=== PATIENT | male | born 1970 | race Two or more races ===

== ENCOUNTER 2020-01-27 21:50 | Inpatient (IN) | payer MEDICAID ==
[~2020-01-27] VITALS: Ht 185.4 cm; Wt 112.9 kg
[2020-01-27] MEDS ORDERED: HYDROmorphone HCL 2 MG/ML VL IV ONE (22:00)
[2020-01-27] MEDS ORDERED: ONDANSETRON HCL 4 MG/2 ML VIAL IV ONE (22:00)
[2020-01-27] MEDS ORDERED: SODIUM CHLORIDE 0.9% 500 ML IVB ONE (22:00)
[2020-01-27 22:34] LABS: Basophils # (auto) 0.1 10 ^3/uL (0-0.2); Basophils % (auto) 0.8 % (0.0-2.0); Eosinophils # (auto) 0.3 10 ^3/uL (0-0.8); Eosinophils % (auto) 1.7 % (0.0-7.0); Hemoglobin 18.3 g/dL (13.5-17.5); Lymphocytes # (auto) 1.3 10 ^3/uL (0.4-5.4); Lymphocytes % (auto) 8.9 % (10.0-50.0); Mean Corpuscular Hemoglobin 30.5 pg (28.0-32.0); Mean Corpuscular Hgb Conc. 33.8 g/dL (32.0-36.0); Mean Corpuscular Volume 90.3 fL (80.0-100.0); Monocytes # (auto) 0.7 10 ^3/uL (0-1.3); Monocytes % (auto) 4.5 % (0.0-12.0); Neutrophils # (auto) 12.1 10 ^3/uL (1.6-8.6); Neutrophils % (auto) 84.1 % (37.0-80.0); Nucleated Red Blood Cells % 0.1 %; Platelet Count (auto) 317 10^3/uL (140-450); Red Blood Cells 5.98 10^6/uL (4.5-5.90); Red Cell Distribution Width 13.6 % (11.8-14.3); White Blood Cell 14.4 10^3/uL (4.4-10.8)
[2020-01-27 22:53] LABS: Albumin 4.6 g/dL (3.4-5.0); BUN/Creatinine Ratio 7.6; Magnesium 2.2 mg/dL (1.6-2.6); Potassium 4.2 mmol/L (3.5-5.1)
[2020-01-27 22:56] LABS: Bilirubin, Total 1.5 mg/dL (0.2-1.0); Total Protein 9.1 g/dL (6.4-8.2)
[2020-01-28] MEDS ORDERED: SODIUM CHLORIDE 0.9% 1,000 ML IV SCH (02:45)
[2020-01-28] MEDS: MORPHINE SULFATE 4 MG/ML SYR/VIAL IV PRN ×4 (03:30→21:00)
[2020-01-28] MEDS: ONDANSETRON HCL 4 MG/2 ML VIAL IV PRN ×2 (03:31→10:01)
[2020-01-28 03:47] LABS: Lactic Acid w/Reflex 2.8 mmol/L (0.4-2.0)
[2020-01-28] MEDS ORDERED: cefTRIAXone 1GM/50ML D5W 50 ML IV SCH (09:00)
[2020-01-28] MEDS: PANTOPRAZOLE 40 MG/10 ML VIAL INJ IV SCH (10:00)
[2020-01-28] MEDS ORDERED: FAMOTIDINE (10MG/ML) 2ML VL IV ONE (12:07)
[2020-01-28] MEDS ORDERED: SUCCINYLCHOLINE CHLORIDE 20 MG/ML 10ML VIAL IV ONE (12:11)
[2020-01-28] MEDS ORDERED: HYDROmorphone HCL 2 MG/ML VL ONE (12:13)
[2020-01-28] MEDS ORDERED: fentaNYL CITRATE 100 MCG/2 ML VL ONE (12:13)
[2020-01-28] MEDS ORDERED: ROCURONIUM 10MG/ML 10ML VIAL IV ONE (12:13)
[2020-01-28] MEDS ORDERED: ONDANSETRON HCL 4 MG/2 ML VIAL ONE (12:13)
[2020-01-28] MEDS ORDERED: PROPOFOL 10 MG/ML 20 ML IV ONE (12:13)
[2020-01-28] MEDS ORDERED: KETOROLAC TROMETH 30 MG/ML 1ML VIAL ONE (12:13)
[2020-01-28] MEDS ORDERED: MIDAZOLAM HCL 1MG/1ML-2 ML VIAL ONE (12:13)
[2020-01-28] MEDS ORDERED: DexAMETHasone SOD PHOS 10MG/1ML VIAL INJ ONE (12:13)
[2020-01-28] MEDS ORDERED: GLYCOPYRROLATE 0.2 MG/ML 1ML VIAL ONE ×2 (12:13→12:45)
[2020-01-28] MEDS ORDERED: LIDOCAINE 2% (LOCAL ANESTH.) PF 5ml SDV ONE (12:13)
[2020-01-28] MEDS ORDERED: ceFAZolin 1GM/50ML 50 ML IV ONE (12:19)
[2020-01-28] MEDS ORDERED: NEOSTIGMINE 1 MG/ML INJ (10mg/10ML VIAL) ONE (12:45)
[2020-01-28] MEDS ORDERED: ePHEDrine SULFATE 50 MG/ML AMP ONE (12:57)
[2020-01-28] MEDS ORDERED: ACCU-CHEK COMFORT CURVE STRIP VI ONE (14:30)
[2020-01-28] MEDS ORDERED: HYDROmorphone HCL 2 MG/ML VL IV PRN (14:30)
[2020-01-28] MEDS ORDERED: ONDANSETRON HCL 4 MG/2 ML VIAL IV PRN (14:30)
[2020-01-28 17:00] VITALS: BP 130/85
[2020-01-28 20:00] VITALS: BP 123/64
[2020-01-28] MEDS: D5W/SOD CHL 0.45%/KCL 20MEQ 1,000 ML IV SCH ×2 (21:00→21:39)
[2020-01-28 22:00] VITALS: BP 123/64
[2020-01-29] MEDS: MORPHINE SULFATE 4 MG/ML SYR/VIAL IV PRN ×3 (02:08→11:52)
[2020-01-29 05:00] VITALS: BP 111/74
[2020-01-29] MEDS: D5W/SOD CHL 0.45%/KCL 20MEQ 1,000 ML IV SCH ×2 (06:14→14:45)
[2020-01-29 07:08] LABS: Basophils # (auto) 0 10 ^3/uL (0-0.2); Basophils % (auto) 0.2 % (0.0-2.0); Eosinophils # (auto) 0 10 ^3/uL (0-0.8); Eosinophils % (auto) 0.1 % (0.0-7.0); Hematocrit 42.9 % (41.0-53.0); Hemoglobin 14.4 g/dL (13.5-17.5); Lymphocytes # (auto) 1.2 10 ^3/uL (0.4-5.4); Lymphocytes % (auto) 11.6 % (10.0-50.0); Mean Corpuscular Hemoglobin 30.8 pg (28.0-32.0); Mean Corpuscular Hgb Conc. 33.5 g/dL (32.0-36.0); Mean Corpuscular Volume 91.9 fL (80.0-100.0); Monocytes # (auto) 0.5 10 ^3/uL (0-1.3); Monocytes % (auto) 4.6 % (0.0-12.0); Neutrophils # (auto) 8.5 10 ^3/uL (1.6-8.6); Neutrophils % (auto) 83.5 % (37.0-80.0); Platelet Count (auto) 269 10^3/uL (140-450); Red Blood Cells 4.67 10^6/uL (4.5-5.90); Red Cell Distribution Width 13.4 % (11.8-14.3); White Blood Cell 10.2 10^3/uL (4.4-10.8)
[2020-01-29 07:29] LABS: Potassium 4.3 mmol/L (3.5-5.1)
[2020-01-29 07:36] LABS: Albumin 3.1 g/dL (3.4-5.0); BUN/Creatinine Ratio 13.2; Bilirubin, Total 1.3 mg/dL (0.2-1.0); Total Protein 6.6 g/dL (6.4-8.2)
[2020-01-29 09:00] VITALS: BP 123/71
[2020-01-29] MEDS: PANTOPRAZOLE 40 MG/10 ML VIAL INJ IV SCH (10:20)
[2020-01-29 13:00] VITALS: BP 129/79
[2020-01-29 16:48] VITALS: BP 138/89
== END 2020-01-29 18:13 | disposition home or self-care (01) | DRG 227 ==
LOC: EDBD 21:50 → ER 22:00 → EDBD 22:00 → OVERFLOW 22:01 → MERGE 22:01 → WEST WING 01-28 15:00
PROVIDERS: ADMIT Nurse Practitioner; ATTEND Internal Medicine
PROC: 0DBU0ZZ Excision of Omentum, Open Approach (ICD-10-PCS; 2020-01-28)
PROC: 0WQF0ZZ Repair Abdominal Wall, Open Approach (ICD-10-PCS; principal; 2020-01-28 12:22)
DX: K42.0 Umbilical hernia with obstruction, without gangrene (principal); D72.829 Elevated white blood cell count, unspecified; R73.9 Hyperglycemia, unspecified; E66.9 Obesity, unspecified; Z20.828 Contact with and (suspected) exposure to other viral communicable diseases; Z90.49 Acquired absence of other specified parts of digestive tract; Z68.32 Body mass index [BMI] 32.0-32.9, adult
CPT/HCPCS: 36415; 74176; 80053; 82150; 82962; 83036; 83605; 83690; 83735; 84443; 85025; 85610; 85730; 86850; 86900; 86901; 87426; 88302; 93005; C9113; G0378; J0330; J0690; J0696; J1100; J1885; J2001; J2250; J2405; J2704; J3490